=== PATIENT | male | born 2000 | race Caucasian/White ===

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

== ENCOUNTER 2019-02-23 18:05 | Emergency (ER) | payer MEDICAID ==
[2019-02-23] MEDS ORDERED: MELOXICAM 7.5 MG TABLET PO STA (18:31)
--- NOTE | 2019-02-23 18:34 | ED Physician Documentation ---
History of Present Illness - Stated complaint Stated Complaint: R KNEE PX - Chief complaint Chief Complaint: General - History obtained from History obtained from: Patient, Family - History of Present Illness Timing: Other (1 year ago) Pain level max: 6 Pain level now: 4 - Additonal information Additional information: 18-year-old male presents the emergency department after a fall today at home. He feels like he reinjured his right knee. Has a history of an ACL tear. He is on crutches currently. Worse with movement and better with rest. Review of Systems Constitutional: denies: Fever, Chills Respiratory: denies: Cough GI: denies: Vomiting Musculoskeletal: denies: Neck pain, Back pain Neurologic: denies: Focal weakness, Numbness, Head injury, LOC PD PAST MEDICAL HISTORY - Past Medical History Cardiovascular: None Respiratory: None Neuro: Headaches Endocrine/Autoimmune: None GI: None : None HEENT: None Psych: None Musculoskeletal: None Derm: None - Past Surgical History Past Surgical History: No - Present Medications Home Medications: Ambulatory Orders Medication Instructions Recorded Confirmed Meloxicam [Mobic] 15 mg PO DAILY PRN #20 tablet 02/23/19 - Allergies Allergies/Adverse Reactions: Allergies Allergy/AdvReac Type Severity Reaction Status Date / Time No Known Drug Allergies Allergy Verified 02/23/19 18:19 - Social History Does the pt smoke?: No Smoking Status: Never smoker Does the pt drink ETOH?: No Does the pt have substance abuse?: No - Immunizations Immunizations are current?: Yes - POLST Patient has POLST: No PD ED PE NORMAL - Vitals Vital signs reviewed: Yes - General General: Alert and oriented X 3, No acute distress - HEENT HEENT: Moist mucous membranes - Derm Derm: Warm and dry - Extremities Extremities: Other (Right knee - Laxity with anterior drawer test. PCL, LCL, MCL are intact. No joint effusion. Neurovascular intact. No bony tenderness) - Neuro Neuro: Alert and oriented X 3 - Psych Psych: Normal mood, Normal affect Results - Vitals Vitals: Vital Signs - 24 hr 02/23/19 02/23/19 18:12 18:46 Temperature 37.3 C Heart Rate 96 78 Respiratory 14 12 Rate Blood Pressure 147/92 H 128/84 H O2 Saturation 99 98 Oxygen O2 Source Room air PD MEDICAL DECISION MAKING - ED course Complexity details: considered differential, d/w patient, d/w family ED course: 18-year-old male with what appears to be a reinjury of his ACL tear. No bony tenderness. Will hold x-rays at this time as he has had these in the past. We will have him follow-up with orthopedics for repeat evaluation. Will place on meloxicam for home. Patient and family counseled regarding signs and symptoms for which I believe and urgent re-evaluation would be necessary. Patient with good understanding of and agreement to plan and is comfortable going home at this time This document was made in part using voice recognition software. While efforts are made to proofread this document, sound alike and grammatical errors may occur. Departure - Departure Disposition: Home, Self Care Clinical Impression: ACL tear Qualifiers: Encounter type: initial encounter Laterality: right Qualified Code(s): S83.511A - Sprain of anterior cruciate ligament of right knee, initial encounter Condition: Good Health Concerns: knee pain Plan of Treatment: supportive care Care Goals: improve pain Assessment: improved Instructions: ED Knee Injury Cruciate Ligament Follow-Up: Ary Castro MD [Primary Care Provider] - Heber Tyson MD [Provider Admit Priv/Credential] - Within 1 week Prescriptions: Meloxicam [Mobic] 15 mg PO DAILY PRN #20 tablet PRN Reason: pain Comments: Return if you worsen. Follow up with your doctor and orthopedics for further care. You may bear weight as tolerated. Forms: Activity restrictions Discharge Date/Time: 02/23/19 18:46
[2019-02-23 18:47] VITALS: BP 128/84
== END 2019-02-23 18:46 | disposition home or self-care (01) ==
LOC: ED 18:05
DX: S83.511A Sprain of anterior cruciate ligament of right knee, initial encounter (principal); W19.XXXA Unspecified fall, initial encounter; Y92.009 Unspecified place in unspecified non-institutional (private) residence as the place of occurrence of the external cause
CPT/HCPCS: 99283; A9270

== ENCOUNTER 2019-03-13 09:11 | Outpatient (CLI) | payer MEDICAID ==
--- NOTE | 2019-03-13 18:08 | MRI Report ---
Reason: SPRAIN OF ANTERIOR CRUCIATE LIGAMENT OF RT KNEE Procedure Date: 03/13/2019 Accession Number: [id number] / [id number] Procedure: MRI - Knee RT W/O CPT Code: FULL RESULT: EXAM: RIGHT KNEE MRI WITHOUT CONTRAST EXAM DATE: 03/13/2019 09:50 AM. CLINICAL HISTORY: Sprain of anterior cruciate ligament of right knee. COMPARISON: None. TECHNIQUE: Multiplanar, multisequence T1-weighted and fluid-sensitive sequences of the knee without contrast. Other: None. FINDINGS: Bones: No fractures or subluxations. No marrow edema. No bone lesions. Articular Cartilage: Unremarkable. Medial Meniscus: The medial meniscus is intact. Lateral Meniscus: The lateral meniscus is intact. Cruciate Ligaments: The anterior and posterior cruciate ligaments are intact. Collateral Ligaments: The medial collateral and lateral collateral ligamentous structures are intact. Tendons: The quadriceps, patellar, semimembranosus, and popliteus tendons are unremarkable. Musculature: No edema or fatty atrophy. Other: No effusion. No popliteal cyst. No loose bodies. The medial and lateral retinacula are intact. Some subcutaneous edema is seen in the superior aspect of Hoffa's fat pad. This is mild. IMPRESSION: 1. Menisci, cruciates and collaterals appear unremarkable. 2. There is a small amount of edema seen in the superior aspect of Hoffa's fat pad. Nonspecific. [facility]
== END 2019-03-13 09:12 | disposition home or self-care (01) ==
LOC: DI 09:11
PROVIDERS: ATTEND Orthopaedic Surgery Sports Medicine
DX: M25.561 Pain in right knee (principal); S83.511D Sprain of anterior cruciate ligament of right knee, subsequent encounter

== ENCOUNTER 2019-05-14 09:28 | Emergency (ER) | payer MEDICAID ==
[2019-05-14 09:35] VITALS: BP 143/77
--- NOTE | 2019-05-14 09:46 | ED Physician Documentation ---
PD HPI SKIN - Stated complaint Stated Complaint: SORES ON FACE - Chief complaint Chief Complaint: Wound - History obtained from History obtained from: Patient - History of Present Illness Timing - onset: How many days ago (3) Timing - duration: Days (3) Timing - details: Gradual onset, Still present Location: Face Quality / character: Crusted, Draining Associated symptoms: No: Fever, Myalgias, Joint pain Contributing factors: No: Recent illness Similar symptoms before: Has not had sx before Recently seen: Not recently seen - Additional information Additional information: 18-year-old male has developed a number of small sores on his face that have been weeping and draining. They are red and about 5 mm in size. He has not had this happen to him before. He looked this up on the Internet and is afraid he might have cancer. Review of Systems Constitutional: denies: Fever Eyes: denies: Decreased vision Ears: denies: Ear pain Nose: denies: Congestion Throat: denies: Sore throat Respiratory: denies: Cough GI: denies: Vomiting Skin: reports: Rash, Lesions Musculoskeletal: denies: Neck pain, Back pain, Extremity pain PD PAST MEDICAL HISTORY - Past Medical History Cardiovascular: None Respiratory: None Neuro: Headaches Endocrine/Autoimmune: None GI: None : None HEENT: None Psych: None Musculoskeletal: None Derm: None - Past Surgical History Past Surgical History: No - Present Medications Home Medications: Ambulatory Orders Medication Instructions Recorded Confirmed Meloxicam [Mobic] 15 mg PO DAILY PRN #20 tablet 02/23/19 Mupirocin 1 gm TP BID #22 gm 05/14/19 - Allergies Allergies/Adverse Reactions: Allergies Allergy/AdvReac Type Severity Reaction Status Date / Time No Known Drug Allergies Allergy Verified 02/23/19 18:19 - Social History Does the pt smoke?: No Smoking Status: Never smoker Does the pt drink ETOH?: No Does the pt have substance abuse?: No - Immunizations Immunizations are current?: Yes - POLST Patient has POLST: No PD ED PE NORMAL - Vitals Vital signs reviewed: Yes (hypertensive ) - General General: Alert and oriented X 3, No acute distress, Well developed/nourished - HEENT HEENT: Atraumatic, PERRL, EOMI, Other (There are multiple sores with honey crusting over the face consistent with impetigo) - Neck Neck: Supple, no meningeal sign, No bony TTP - Respiratory Respiratory: No respiratory distress - Derm Derm: Normal color, Warm and dry - Extremities Extremities: No deformity, No edema - Neuro Neuro: Alert and oriented X 3, experimental mechanic outboard motors 2-12 intact, No motor deficit, No sensory deficit, Normal speech Eye Opening: Spontaneous Motor: Obeys Commands Verbal: Oriented GCS Score: 15 - Psych Psych: Normal mood, Normal affect Results - Vitals Vitals: Vital Signs - 24 hr 05/14/19 09:32 Temperature 36.5 C Heart Rate 57 L Respiratory 18 Rate Blood Pressure 143/77 H O2 Saturation 100 Oxygen O2 Source Room air PD MEDICAL DECISION MAKING - ED course Complexity details: considered differential, d/w patient ED course: 18 y/o male with impetigo. Departure - Departure Disposition: 01 Home, Self Care Clinical Impression: Impetigo Instructions: Impetigo Follow-Up: Eduar Davalos PA-C [Primary Care Provider] - Prescriptions: Mupirocin 1 gm TP BID #22 gm
== END 2019-05-14 09:55 | disposition home or self-care (01) ==
LOC: ED 09:28
DX: L01.00 Impetigo, unspecified (principal)
CPT/HCPCS: 99282; 99284

== ENCOUNTER 2019-12-24 21:15 | Emergency (ER) | payer MEDICAID ==
[2019-12-24 21:21] VITALS: BP 135/74
--- NOTE | 2019-12-24 22:08 | ED Physician Documentation ---
PD HPI LOWER EXT INJURY - Stated complaint Stated Complaint: LT ANKLE INJ - Chief complaint Chief Complaint: Trauma Ext - History obtained from History obtained from: Patient (Patient states he was playing basketball about an hour prior to arrival, when he jumped up for rebound off the backboard when he landed he twisted his left ankle with an inversion table. He noticed swelling that time immediate pain. Denies any loss of consciousness or hitting his head. CMS is intact.) Review of Systems Constitutional: reports: Reviewed and negative Cardiac: reports: Reviewed and negative Respiratory: reports: Reviewed and negative GI: reports: Reviewed and negative Skin: reports: Rash, Lesions, Abrasion (s), Laceration (s) Musculoskeletal: reports: Joint pain, Joint swelling, Other (Left lateral ankle) PD PAST MEDICAL HISTORY - Past Medical History Past Medical History: No Cardiovascular: None Respiratory: None Neuro: Headaches Endocrine/Autoimmune: None GI: None : None HEENT: None Psych: None Musculoskeletal: None Derm: None - Past Surgical History Past Surgical History: No - Present Medications Home Medications: Ambulatory Orders Medication Instructions Recorded Confirmed No Known Home Medications 12/24/19 12/24/19 - Allergies Allergies/Adverse Reactions: Allergies Allergy/AdvReac Type Severity Reaction Status Date / Time No Known Drug Allergies Allergy Verified 12/24/19 21:36 - Social History Does the pt smoke?: No Smoking Status: Never smoker Does the pt drink ETOH?: No Does the pt have substance abuse?: No - Immunizations Immunizations are current?: Yes - POLST Patient has POLST: No PD ED PE NORMAL - General General: Alert and oriented X 3, No acute distress, Well developed/nourished - HEENT HEENT: Atraumatic, Moist mucous membranes - Neck Neck: No adenopathy - Cardiac Cardiac: RRR, No murmur - Respiratory Respiratory: No respiratory distress, Clear bilaterally - Extremities Extremities: No deformity, Other (Left lateral ankle tender to palpate the lateral malleolus, edema noted anterior and posterior to the lateral malleolus CMS intact.) Results - Vitals Vitals: Vital Signs - 24 hr 12/24/19 21:16 Temperature 37.5 C Heart Rate 97 Respiratory 18 Rate Blood Pressure 135/74 H O2 Saturation 98 Oxygen O2 Source Room air - Rads (name of study) No standard instances Radiology: See rad report (No acute fracture.) PD MEDICAL DECISION MAKING - ED course Complexity details: d/w patient (No fracture was noted on the x-ray today of the left ankle. Patient has a left ankle sprain. Patient was educated on wearing a brace when playing sports. He is advised not to play any sports until swelling has subsided and he can ambulate without) Departure - Departure Disposition: 01 Home, Self Care Clinical Impression: Left ankle sprain Qualifiers: Encounter type: initial encounter Involved ligament of ankle: unspecified ligament Qualified Code(s): S93.402A - Sprain of unspecified ligament of left ankle, initial encounter Condition: Good Instructions: ED Sprain Ankle Comments: no broken bones in your ankle were noted today. You have an ankle sprain. You can take Ibuprofen /or Tylenol for pain control. Keep your left foot elevated tonight, you can ice it tonight to help reduce swelling. No sports until your swelling is reduced and you are able to Bear weight on the left ankle without having any pain. When you restart sports but start out slow and wear an ankle brace.
--- NOTE | 2019-12-24 22:23 | XRAY Report ---
Reason: pain, edema. Procedure Date: 12/24/2019 Accession Number: [id number] / [id number] Procedure: XR - Ankle 3 View LT CPT Code: Final Report FULL RESULT: EXAM: LEFT ANKLE RADIOGRAPHY. EXAM DATE: 12/24/2019 09:51 PM. CLINICAL HISTORY: Pain, edema. COMPARISON: None. TECHNIQUE: 3 views. FINDINGS: Bones: Normal. No fractures or bone lesions. Joints: Normal. No effusion. No subluxations. The ankle mortise is normally aligned. Soft Tissues: There is lateral soft tissue swelling. IMPRESSION: Soft tissue swelling, no fracture or disruption of the ankle mortise. [facility]
== END 2019-12-24 22:46 | disposition home or self-care (01) ==
LOC: ED 21:15
DX: S93.402A Sprain of unspecified ligament of left ankle, initial encounter (principal); X50.1XXA Overexertion from prolonged static or awkward postures, initial encounter; Y93.67 Activity, basketball
CPT/HCPCS: 99283; 99284